=== PATIENT | male | born 1985 | race Two or more races ===

== ENCOUNTER 2020-02-06 05:54 | Emergency (ER) | payer OTHER ==
[~2020-02-06] VITALS: Ht 157.5 cm; Wt 49.9 kg
[2020-02-06 05:56] VITALS: BP 99/67
--- NOTE | 2020-02-06 05:59 | NUR ---
PATIENT CAME TO ER BED 5 BIB RA IN RESPIRATORY DISTRESS. PER RESCUE AMBULANCE REPORT, PATIENT WAS IN RESPIRATORY ARREST SATURATING IN THE 40s ON ROOM AIR AND [facility] STARTED BAG MASK VENTILATION PRIOR TO ARRIVAL. UPON ASSESSMENT, PATIENT IS ON BAG MASK VENTILATION UPON TRANSFER TO ER BED FROM [facility]. PATIENT HAS MOTTLED SKIN. SKIN IS WARM TO THE TOUCH. PATIENT'S EYES ARE ROLLED BACK. PATIENT IS NOT RESPONSIVE TO VERBAL AND MECHANICAL STIMULI. EMT ATTEMPTING TO FIND WORKING PULSE OXIMETRY. CONNECTED TO CAROUSEL ATTENDANT AND ZOL MONITOR.
--- NOTE | 2020-02-06 06:03 | NUR ---
WEAK PULSES NOTED. MADE AWARE
--- NOTE | 2020-02-06 06:05 | NUR ---
PT WENT ASYSTOLE. CPR INITIATED.
--- NOTE | 2020-02-06 06:10 | NUR ---
PATIENT'S TIME OF .
--- NOTE | 2020-02-06 06:47 | NUR ---
CALLED DR. YOUNGER, PT'S PMD. LEFT MESSAGE
--- NOTE | 2020-02-06 06:57 | NUR ---
FAMILY NOTIFIED OF ; SPOKE TO MARCOS (SISTER) AND ROMAIN (MOTHER).
--- NOTE | 2020-02-06 06:58 | NUR ---
[facility] . MANAGER ACCESS'S CASE # [id number]. SPOKE WITH TONIO.
--- NOTE | 2020-02-06 07:08 | NUR ---
[facility] CALLED AND REPORTED. SPOKE WITH ELIESER Perdomo CASE# [id number]
--- NOTE | 2020-02-06 08:13 | NUR ---
wheeled out to [facility] [place] by [employer]
== END 2020-02-06 07:46 ==
LOC: ER 05:57
DX: I46.9 Cardiac arrest, cause unspecified (principal); Z98.890 Other specified postprocedural states